=== PATIENT | male | born 1945 | race Caucasian/White ===

== ENCOUNTER 2017-03-04 10:43 | Emergency (ER) | payer MEDICARE, BC ==
[2017-03-04] MEDS ORDERED: Ipratropium 0.5MG/2.5ML NEB* 0.5 MG/2.5 ML NEB.SOLN INH ONE (13:07)
[2017-03-04] MEDS ORDERED: Albuterol 2.5 MG/3 ML NEB.SOL* (0.083%) INH ONE (13:07)
--- NOTE | 2017-03-04 13:07 | UC ---
Respiratory Complaint HPI - HPI Summary HPI Summary: 71 yo male with 5 day hx of productive cough (brownish) associated with fever ( tactile) and left lateral chest pain no n/v/d - History of Current Complaint Chief Complaint: UCRespiratory Stated Complaint: COUGH,CONGESTION Time Seen by Provider: 03/04/17 12:46 Hx Obtained From: Patient Onset/Duration: Gradual Onset, Lasting Days, Other - similar but less severe symptoms about 2 weeks ago these resolved spontaneously Severity Initially: Mild Severity Currently: Moderate Pain Intensity: 6 Pain Scale Used: 0-10 Numeric Character: Cough: Productive, Sputum Description: - brown Aggravating Factors: Nothing Alleviating Factors: Nothing Associated Signs And Symptoms: Positive: Fever - kaia, Chills - Allergies/Home Medications Allergies/Adverse Reactions: Allergies Allergy/AdvReac Type Severity Reaction Status Date / Time lipitor Allergy Unknown Uncoded 03/04/17 14:18 Reaction Details Home Medications: Home Medications [id number] [[place]ren[place] Plus Day/Nig] 1 sharmila PO Q4H PRN [History Confirmed 03/04/17] guaiFENesin ER TAB [Mucinex*] 600 mg PO BID PRN 03/04/17 [History Confirmed ] PMH/Surg Hx/FS Hx/Imm Hx Previously Healthy: Yes Endocrine History: Dyslipidemia Cardiovascular History: Hypertension Respiratory History: Bronchitis, Pneumonia - x1 - Surgical History Surgical History: Yes Surgery Procedure, Year, and Place: 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 - Family History Known Family History: Positive: Hypertension - Social History Alcohol Use: Daily Alcohol Amount: 2 beer daily Substance Use Type: None Smoking Status (MU): Former Smoker When Did the Patient Quit Smoking/Using Tobacco: 37 years ago - Immunization History Most Recent Influenza Vaccination: 2017 Review of Systems Constitutional: Fever, Chills, Fatigue Skin: Negative Eyes: Negative ENT: Negative Respiratory: Cough Cardiovascular: Chest Pain - left lateral with cough or deep breath Gastrointestinal: Negative Genitourinary: Negative Motor: Negative Neurovascular: Negative Musculoskeletal: Negative Neurological: Negative Psychological: Negative Is Patient Immunocompromised?: No All Other Systems Reviewed And Are Negative: Yes Physical Exam Triage Information Reviewed: Yes Appearance: Well-Appearing, No Pain Distress, Well-Nourished Vital Signs: Initial Vital Signs Temp 100 F 03/04/17 11:43 Pulse 77 03/04/17 11:43 Resp 20 03/04/17 11:43 BP 94/65 03/04/17 11:43 Pulse Ox 97 03/04/17 11:43 Eyes: Positive: Conjunctiva Clear ENT: Positive: Hearing grossly normal, TMs normal, Uvula midline. Negative: Nasal congestion, Nasal drainage, Muffled voice, Hoarse voice Dental Exam: Normal Neck: Positive: Supple, Nontender, No Lymphadenopathy Respiratory: Positive: Normal breath sounds, No respiratory distress, No accessory muscle use, Crackles - left base Cardiovascular: Positive: RRR, No Murmur Musculoskeletal: Positive: Strength Intact, ROM Intact, No Edema Neurological: Positive: Alert Psychological Exam: Normal Skin Exam: Normal UC Diagnostic Evaluation - Laboratory O2 Sat by Pulse Oximetry: 97 - normal/not hypoxic - Radiology Xray Interpretation: Positive (See Comments) - There may BE early pneumonia in the left lung base in the retrocardiac region Radiology Interpretation Completed By: Radiologist Respiratory Course/Dx - Differential Dx/Diagnosis Provider Diagnoses: pneumonia Discharge - Discharge Plan Condition: Stable Disposition: HOME Prescriptions: Levofloxacin TAB* [Levaquin TAB*] 500 mg PO DAILY #6 tab Patient Education Materials: Pneumonia (ED) Referrals: Henok Aguayo MD [Primary Care Provider] - 2 Days Additional Instructions: rest fluids tylenol mucinex or robitussin To ER for worsening symptoms (vomiting/shortness of breath/or new symptoms) Recheck in 48 hours unless you are markedly improved
--- NOTE | 2017-03-04 14:05 | RAD ---
Indication: Productive cough, left-sided Rales. 2 views of the chest including dual energy PA views demonstrates streaky infiltrate in the left base may represent early pneumonia. No pleural fluid is identified. Right lung field is clear. There are no prior studies for comparison. IMPRESSION: There may BE early pneumonia in the left lung base in the retrocardiac region.
[2017-03-04 14:10] VITALS: BP 123/70
[2017-03-04] MEDS ORDERED: Levofloxacin TAB* 500 MG PO ONE (14:12)
== END 2017-03-04 14:42 | disposition home or self-care (01) ==
LOC: UCCORT 10:43
DX: J18.9 Pneumonia, unspecified organism (principal); E78.5 Hyperlipidemia, unspecified; I10 Essential (primary) hypertension; Z88.8 Allergy status to other drugs, medicaments and biological substances; Z87.891 Personal history of nicotine dependence
CPT/HCPCS: 71046; 99213; G0463; J7644